=== PATIENT | female | born 1975 | race Caucasian/White ===

== ENCOUNTER 2016-12-11 05:42 | Day surgery (SDC) | payer BC ==
[~2016-12-11] VITALS: Ht 170.2 cm; Wt 88.5 kg
[~2016-12-11 05:42] MED LIST: ALLEGRA ALLERG180 MG PO; ALLEGRA30 MG PO; BUSPAR10 MG PO; CIPRO500 MG PO; DICLOFENAC POTA50 MG PO; EFFEXOR XR150 MG PO; EXCEDRIN MIGRA1 EAC3 PO; FLEXERIL10 MG PO; FLOMAX0.4 MG PO; IMITREX100 MG PO; IMITREX50 MG PO; IRON325 M1 PO; MOBIC15 MG PO; NUVARING VAGIN1 EACH VG; PERCOCET 5/31 TABLET PO; SINGULAIR10 MG PO; TOPAMAX100 MG PO; VALTREX50 MG/ML PO; VENLAFAXINE HCL75 M3 PO; VERAPAMIL HCL240 MG PO; VICODIN 5-3001 EACH PO; VITAMIN D10000 UNIT PO; VITAMIN D32000 UNI1 PO; ZOFRAN4 MG PO
[2016-12-11 06:08] VITALS: BP 143/89
[2016-12-11 07:23] LABS: METH RESISTANT S AUREUS PCR POSITIVE (NEGATIVE)
[2016-12-11 07:28] LABS: PROBE CHECK PASS
[2016-12-11 14:52] VITALS: BP 123/73
[2016-12-11 23:48] VITALS: BP 137/84
[2016-12-12 03:58] VITALS: BP 138/90
[2016-12-12 06:59] LABS: MCH 30.8 PG (29.0-34.0); MCHC 33.5 G/DL (30.0-36.0); MCV 91.8 FL (83-99); MEAN PLAT.VOLUME 10.4 uM^3 (9.5-12.4); RBC DIS.WIDTH-CV 13.5 % (11.8-14.6); RBC DIS.WIDTH-SD 44.9 % (39-53); WHITE BLOOD COUNT 15.2 K/uL (4.1-10.2)
[2016-12-12 07:25] LABS: ANION GAP 8 MEQ/L (2-14); CHLORIDE 114 MEQ/L (99-109); GFR ESTIMATE (CALCULATED) > 59 mL/min/; GLUCOSE 96 mg/dL (70-99); POTASSIUM 3.5 MEQ/L (3.7-5.4); SAMPLE HEMOLYSIS CHECK 0; SAMPLE ICTERIC CHECK 0; SAMPLE LIPEMIA CHECK 0; SODIUM 143 MEQ/L (136-147); UREA NITROGEN (BUN) 10 mg/dL (9-23)
[2016-12-12 07:27] LABS: EOSINOPHIL (%) 0 % (0-5); IMMATURE GRANULOCYTE (%) 0.3 % (0.0-0.7); LYMPHOCYTE COUNT 2.5 K/uL (1.0-2.8); MONOCYTE (%) 7.4 % (3-12); MONOCYTE COUNT 1.1 K/uL (0-0.8); NEUTROPHIL (%) 75.8 % (45-76); NEUTROPHIL COUNT 11.5 K/uL (1.8-6.4)
[2016-12-12 07:31] LABS: RED BLOOD COUNT 4.03 M/uL (3.80-5.20)
[2016-12-12 07:32] LABS: PLATELET COUNT 212 K/uL (156-360)
[2016-12-12 07:45] VITALS: BP 124/79
[2016-12-12 08:04] LABS: HEMATOLOGY COMMENT 1 SMEAR COMPATIBLE; USER ID CL
== END 2016-12-12 10:43 | disposition home or self-care (01) ==
LOC: SDC 05:42 → 2SOUTH 10:35 → 2EAST 14:46
PROVIDERS: Obstetrics & Gynecology Gynecology
PROC: 0UTC8ZZ Resection of Cervix, Via Natural or Artificial Opening Endoscopic (ICD-10-PCS; principal; 2016-12-11)
PROC: 0UT9FZZ Resection of Uterus, Via Natural or Artificial Opening With Percutaneous Endoscopic Assistance (ICD-10-PCS; principal; 2016-12-11)
PROC: 0TJ98ZZ Inspection of Ureter, Via Natural or Artificial Opening Endoscopic (ICD-10-PCS; principal; 2016-12-11)
PROC: 0UT7FZZ Resection of Bilateral Fallopian Tubes, Via Natural or Artificial Opening With Percutaneous Endoscopic Assistance (ICD-10-PCS; principal; 2016-12-11)
DX: N92.0 Excessive and frequent menstruation with regular cycle (principal); N94.6 Dysmenorrhea, unspecified; D25.1 Intramural leiomyoma of uterus; D25.0 Submucous leiomyoma of uterus; N80.0 Endometriosis of uterus; N80.3 Endometriosis of pelvic peritoneum; N72 Inflammatory disease of cervix uteri; D64.9 Anemia, unspecified; E66.09 Other obesity due to excess calories; Z68.30 Body mass index [BMI] 30.0-30.9, adult; Z88.0 Allergy status to penicillin; Z88.1 Allergy status to other antibiotic agents
CPT/HCPCS: 80048; 85025; 87086; 87641; 88307; G0378; J0131; J0330; J1100; J1170; J1580; J1644; J1885; J1940; J2250; J2270; J2405; J2710; J3010; J3370; J7050; J7120